=== PATIENT | female | born 1945 | race Caucasian/White ===

== ENCOUNTER 2017-09-06 00:59 | Inpatient (IN) | payer MEDICARE ==
[2017-09-06 02:00] LABS: Bilirubin Negative (Negative); Blood, Urine Small (Negative); Glucose, Urine (Dipstick) Negative (Negative); Ketone, Urine Negative (Negative); Nitrite Negative (Negative); Protein, Urine (Dipstick) Negative (Neg-Trace); Urobilinogen 0.2 mg/dL (0.2-1.0)
[2017-09-06 02:02] LABS: Bacteria/HPF None Seen HPF (None Seen); Hyaline Casts/LPF 0-3 HYALINE CAST LPF (0-3 Hyaline); Squamous Epithelial 0-3 HPF (0-3); WBC/HPF 0-3 HPF (0-3)
[2017-09-06 02:06] LABS: #Basophils 0.1 thou/uL (0.0-0.2); #Eosinphils 0.3 thou/uL (0.0-0.7); #Lymphocytes 2.8 thou/uL (1.20-3.40); #Monocytes 0.9 thou/uL (0.11-0.59); #Neutrophils 5.2 thou/uL (1.40-6.50); %Basophils 0.7 % (0.0-1.0); %Eosinophils 2.7 % (0.0-10.0); %Lymphocytes 30.7 % (21.0-51.0); %Monocytes 10.2 % (0.0-10.0); Hematocrit 41.4 % (36.0-47.0); Mean Platelet Volume 7.7 fL (7.4-10.4); Red Blood Cell (RBC) Count 4.61 mill/uL (4.20-5.40); White Blood Cell (WBC) Count 9.2 thou/uL (4.8-10.8)
[2017-09-06 02:25] LABS: Lactic Acid - Sepsis 2.1 mmol/L (0.5-2.2)
[2017-09-06 02:34] LABS: Troponin I 0.017 ng/mL (< 0.028)
[2017-09-06 02:42] LABS: ALT (SGPT) 16 U/L (8-55); AST (SGOT) 23 U/L (5-34); Alkaline Phosphatase 113 U/L (40-150); Anion Gap 15 mmol/L (10-20); BUN (Urea Nitrogen) 15 mg/dL (9.8-20.1); Bilirubin, Total 0.4 mg/dL (0.2-1.2); Calc. Creatinine Clearance 0 mL/min (70-130); Calcium 9.9 mg/dL (7.8-10.44); Carbon Dioxide 25 mmol/L (23-31); Chloride 103 mmol/L (98-107); Estimated GFR-MDRD 67; Globulin 3.2 g/dL (2.4-3.5); Protein, Total 7.1 g/dL (6.0-8.3)
[2017-09-06] MEDS ORDERED: Potassium Chloride 20 MEQ TAB ONE (03:10)
[2017-09-06 04:51] LABS: Troponin I 0.015 ng/mL (< 0.028)
[2017-09-06] MEDS ORDERED: Sodium Chloride 0.9% 500 ML IV SCH (05:30)
[2017-09-06] MEDS ORDERED: Acetaminophen 325 MG TAB PO PRN (05:30)
[2017-09-06] MEDS ORDERED: Ondansetron ODT 4 MG TAB SL PRN (05:30)
[2017-09-06] MEDS ORDERED: Ondansetron HCl/PF 4 MG/2 ML Vial IVP PRN (05:30)
[2017-09-06 05:57] VITALS: BMI 47.2
[2017-09-06 08:10] LABS: Troponin I Less than 0.010 ng/mL (< 0.028)
--- NOTE | 2017-09-06 08:36 | RAD ---
SINGLE VIEW OF CHEST: Date: 09/06/17 COMPARISON: None. HISTORY: Multiple episodes of near syncope. FINDINGS: Single view of the chest shows a normal sized cardiomediastinal silhouette. There is no evidence of consolidation, mass, or pleural effusion. The bones are unremarkable. IMPRESSION: No evidence of acute cardiopulmonary disease. POS: [facility]
[2017-09-06] MEDS ORDERED: Potassium Chloride 8 MEQ TAB PO SCH (11:15)
[2017-09-06 11:49] LABS: T4 6.9 ug/dL (4.87-11.72)
--- NOTE | 2017-09-06 14:44 | ULT ---
CAROTID ULTRASOUND: DATE: 09/06/17 COMPARISON: None. HISTORY: Near syncope. TECHNIQUE: Multiplanar Lewis scale and color Doppler images were obtained in a carotid ultrasound. Spectral anal ysis of the Doppler waveforms were performed. FINDINGS: No significant plaque is visualized in either internal or common carotid artery. The Doppler wavefor ms are normal bilaterally. Peak systolic velocity in the right ICA is 82 cm/second. Peak systolic velocity in the right CCA is 80 cm/second. The right ICA/CCA ratio is 1.0. Peak systolic velocity in the left ICA is 66 cm/second. Peak systolic velocity in the left CCA is 98 cm/second. The left ICA/CCA ratio is 0.7. Both vertebral arteries demonstrate antegrade flow without focal stenosis. IMPRESSION: No evidence of hemodynamically significant stenosis. POS: [place]
--- NOTE | 2017-09-06 15:56 | CON ---
DATE OF CONSULTATION: 09/06/2017 REASON FOR CONSULTATION: Symptomatic bradycardia. REFERRING PROVIDER: Trino Mcclelland D.O. HISTORY OF PRESENT ILLNESS: The patient is a patient of Dr. Andrea Mast. She states she has thomason d dizziness and lightheadedness noted over the last several months. She wore a recent 3-week event recorder which was negative. She had intermittent symptoms. She recently presented with the above and was felt to be bradycardic. Her heart rate has been in th e 40s to 50s. No chest pain, pressure, shortness of breath, lightheadedness, dizziness, syncope or presyncope present. PAST MEDICAL HISTORY: Hyperlipidemia, hypertension, and hypothyroidism. PAST SURGICAL HISTORY: Cholecystectomy, tonsillectomy, bilateral knee surgery, and laminectomy. ALLERGIES: None. HOME MEDICATIONS: Omeprazole, Diovan/hydrochlorothiazide, aspirin, metoprolol, potassium, Synthroid and pravastatin. REVIEW OF SYSTEMS: Ten-point review of systems is reviewed and as above, otherwise negative. PHYSICAL EXAMINATION: GENERAL: The patient is a pleasant female who is in no acute distress. The patient appears her sta nisha age. VITAL SIGNS: Blood pressure 178/98, pulse 89, temperature 98. NEUROLOGIC: The patient is alert and oriented x3 with no focal neurologic deficits. HEENT: Sclerae without icterus. Mouth has moist mucous membranes with normal pallor. NECK: No JVD. Carotid upstroke brisk. No bruits bilaterally. LUNGS: Clear to auscultation with unlabored respirations. BACK: No scoliosis or kyphosis. CARDIAC: Regular rate and rhythm with normal S1 and S2. No S3 or S4 noted. No significant rubs, m urmurs, thrills, or gallops noted throughout the precordium. PMI is not displaced. There is no par asternal heave. ABDOMEN: Soft, nontender, nondistended. No peritoneal signs present. No hepatosplenomegaly. No a bnormal striae. EXTREMITIES: 2+ femoral and 2+ dorsalis pedis pulses. No cyanosis, clubbing, or edema. SKIN: No gross abnormalities. PERTINENT LABS: Hemoglobin 13.7, hematocrit 41.4, creatinine 0.83, troponin negative. EKG: Sinus bradycardia with no EKG changes suggesting ischemia. IMPRESSION: 1. Dizziness. 2. Bradycardia. RECOMMENDATIONS: I am unsure whether her bradycardia is the true etiology to her current dizziness, which she has had over the last several months. She is currently in the process of workup by Dr. Osman Mast. At this point, we would decrease her metoprolol to 12.5 one p.o. q.a.m. I would be concerned about reflexive tachycardia if stop acutely. We may consider stopping completely tomorro w if her heart rate continues to be low. Again, her symptoms may be related to a beta-melida thera py. Another consideration is placing an implantable loop recorder. Would first try conservative th erapy first with the above. We would recommend followup with Dr. Andrea Mast in the next 2 to 3 weeks to see if her symptoms have improved. If not, we will proceed with the above.
--- NOTE | 2017-09-06 17:31 | HP ---
PRIMARY CARE PHYSICIAN: Dr. Jl Cueto. CHIEF COMPLAINT: Dizziness and near syncope. HISTORY OF PRESENT ILLNESS: This is a 72-year-old female patient of Dr. Jl Cueto with a histor y of hypertension, hyperlipidemia, hypothyroidism and gastroesophageal reflux disease. She has had episodes of dizziness over the past several months. She presented to the emergency department last night with worsening symptoms and feeling like she was about to pass out. The patient reports that she has had lightheaded and dizzy spells for the past several months. She has been seen by Dr. Phillip palmer for this and saw Dr. Mast last one week ago for these episodes. She did have a heart monitor, which she wore for about 1 month, which revealed no arrhythmias at that time. Yesterday, she was o ut in the heat mowed her lawn for about 1 hour. She felt fine with no dizziness during the mowing, but afterwards she went inside and she had 6-7 episodes of dizziness. She felt worse last night. S he called her daughter and minimum walking back from the phone and as she felt the room spinning and felt like she was about to fall, she states that she gets \\\\"thinking feeling\\\\" even when she is l linda down. She presents to the emergency department and had normal workup except for bradycardia on her EKG. She ruled out for an CO with negative cardiac enzymes and she is now being admitted for [facility] evaluation and treatment. PAST MEDICAL HISTORY: Hypertension, hyperlipidemia, hypothyroidism, gastroesophageal reflux disease . MEDICATIONS: Include metoprolol 50 mg daily, valsartan/hydrochlorothiazide 320/25 mg daily, levothy roxine 137 mcg daily and acid daily, omeprazole daily, Klor-Con 8 mEq daily, aspirin 81 mg daily, at orvastatin 10 mg daily. ALLERGIES: LEVAQUIN, which causes a rash. PAST SURGICAL HISTORY: Cholecystectomy, tonsillectomy, knee replacement of both knees. SOCIAL HISTORY: She lives alone. No alcohol, no drug use. She quit smoking over 40 years ago. FAMILY HISTORY: Father with CVA, sister with atrial fibrillation with history of CVA. REVIEW OF SYSTEMS: As per the history of present illness. GENERAL: She denies any recent fevers, chills or recent illness. HEENT: She denies headache, visual or hearing changes. She admits to the episodes of ringing in he r ears, but no hearing loss. CARDIAC: As per the history of present illness. She denies any chest pain, shortness of breath, pa lpitations. PULMONARY: Denies cough or hemoptysis. GASTROINTESTINAL: Denies nausea, vomiting, abdominal pain, melena or hematochezia. GENITOURINARY: Denies dysuria or hematuria. Denies recurrent urinary tract infections. NEUROLOGIC: Positive for dizziness and near syncope, but no loss of consciousness and no falls,. S he denies head trauma. PSYCHIATRIC: Denies anxiety or depression. PHYSICAL EXAMINATION: VITAL SIGNS: Temperature 97.5, pulse rate of 48-58, respirations 18, blood pressure 142/77, pulse o x is 96% on room air. GENERAL: She is awake and alert, in no acute distress. She is pleasant. Speech is clear. HEENT: Mucosa is moist. NECK: Supple, no JVD, adenopathy or bruits. HEART: Bradycardic, but regular. LUNGS: Clear bilaterally. ABDOMEN: Obese, soft, nontender, nondistended. No hepatosplenomegaly. EXTREMITIES: No clubbing, cyanosis or edema. 2+ peripheral pulses bilaterally. No calf tenderness . LABORATORY DATA: White blood cell count 9200, hemoglobin and hematocrit 13.7 and 41.4 and platelets of 306. D-dimer was normal. Sodium 140, potassium 3.2, chloride 103, CO2 25, BUN and creatinine 1 5 and 0.83 with a GFR of 67. Serum glucose was 117. Lactic acid was normal. AST and ALT are trace l. Troponin I is negative. TSH was done in June, which was normal. Urinalysis showed small bloo d and trace leukocytes. Chest x-ray showed no active disease. ASSESSMENT AND PLAN: This is a 72-year-old female patient with a history of hypertension, hyperlipi demia, and persistent dizziness, which seems to be worsening with episodes of lightheadedness and ne ar syncope. She has a long history of low heart rate even down into the 30s and 40s when she was ad mitted at the [facility] several years ago, now with persistent and worsening of her symptoms. I agree with admission to telemetry. Consult Cardiology for evaluation. Apparently , Dr. Mast has been noted possibly placement of a loop recorder or pacemaker if her symptoms wor sen. 1. Hypertension. We will continue her home medications, but will hold metoprolol due to her low he art rate. 2. Hyperlipidemia. We will continue her medications. 3. Hypothyroidism, appears to be stable. We will check a TSH and T4. 4. Near syncope. We will check carotid Doppler, possibly might need an MRI of her brain if her sym ptoms worsen.
[2017-09-06] MEDS ORDERED: Hydrochlorothiazide 25 MG TAB PO SCH (18:15)
[2017-09-06] MEDS ORDERED: Valsartan 80 MG TAB PO SCH (18:15)
[2017-09-07] MEDS ORDERED: Levothyroxine Sodium 112 MCG TAB PO SCH (06:00)
[2017-09-07] MEDS ORDERED: Levothyroxine Sodium 25 MCG TAB PO SCH (06:00)
[2017-09-07 06:26] LABS: Anion Gap 13 mmol/L (10-20); BUN (Urea Nitrogen) 12 mg/dL (9.8-20.1); Calc. Creatinine Clearance 116 mL/min (70-130); Calcium 9.5 mg/dL (7.8-10.44); Carbon Dioxide 27 mmol/L (23-31); Chloride 103 mmol/L (98-107); Estimated GFR-MDRD 79
[2017-09-07] MEDS ORDERED: Non-Formulary Item 1 EACH (Omeprazole [Omeprazole] 20 MG) PO SCH (09:00)
[2017-09-07] MEDS ORDERED: Non-Formulary Item 1 EACH (Potassium Chloride [Potassium Chloride] 8 MEQ) PO SCH (09:00)
[2017-09-07] MEDS ORDERED: Non-Formulary Item 1 EACH (Valsartan/Hydrochlorothiazide [Valsartan-Hctz 320-25 Mg Tab] 1 PO SCH (09:00)
[2017-09-07] MEDS ORDERED: Aspirin 81 mg Enteric Coated Tablet PO SCH (09:00)
[2017-09-07] MEDS ORDERED: Non-Formulary Item 1 EACH (Levothyroxine Sodium [Levothyroxine Sodium] 137 MCG) PO SCH (09:00)
[2017-09-07] MEDS ORDERED: Hydrochlorothiazide 25 MG TAB PO SCH (09:00)
[2017-09-07] MEDS ORDERED: Potassium Chloride 8 MEQ TAB PO SCH (09:00)
[2017-09-07] MEDS ORDERED: Valsartan 80 MG TAB PO SCH (09:00)
[2017-09-07] MEDS ORDERED: Atorvastatin Calcium 10 MG TAB PO SCH (09:00)
[2017-09-07 10:49] VITALS: BP 142/78; TEMP 98.1
--- NOTE | 2017-09-07 19:21 | DIS ---
ADMISSION DIAGNOSES: 1. Dizziness, near syncope. 2. Bradycardia. 3. Hypertension. 4. Hypothyroidism. DISCHARGE DIAGNOSES: Dizziness, improved. Bradycardia, improved with decreased beta-melida. CONSULTATIONS: Dr. Gill for Cardiology. PROCEDURES: Telemetry monitoring, carotid ultrasound, chest x-ray. HOSPITAL COURSE: This 72-year-old female patient with a history of hypertension, hyperlipidemia, hy pothyroidism with persistent dizziness over the past several months. Workup has been initiated by Maxx Cueto and Dr. Mast as she had a 3-week heart monitor placed, which was normal. Her beta-bloc ker was decreased yesterday. She has had decreased episodes of her dizziness but continued to have one today while she was walking in the hallway. No fall, no near syncope. It has improved from whe n she first came to the ER and she is anxious to go home. PHYSICAL EXAMINATION: VITAL SIGNS: Temperature 98.6, pulse of 63-72, respirations 20, blood pressure 136/66, pulse ox is 96% on room air. GENERAL: She is awake and alert. Speech is clear. NECK: Supple. No bruits. HEART: Regular rate and rhythm. LUNGS: Clear. ABDOMEN: Soft. EXTREMITIES: With no edema. NEUROLOGIC: Cranial nerves II through XII are intact. Strength is 5/5 bilaterally. The Loyal-Hallpi ke exam was negative. LABORATORY DATA: Carotid Dopplers were normal. Labs were all normal. Sodium 139, potassium 3.5, c hloride 103, CO2 of 27, BUN and creatinine 12 and 0.72. Serum glucose of 105. Troponins are negati ve. Thyroid was stable. DISCHARGE MEDICATIONS: Include aspirin 81 mg, Lipitor 10 mg, hydrochlorothiazide 25 mg, levothyroxi ne 137 mcg, metoprolol 12.5 mg with decreasing dosages per Cardiology, Protonix 40 mg, potassium chl oride 8 mEq, valsartan/hydrochlorothiazide 320/12.5 daily. FOLLOWUP INSTRUCTIONS: The patient is to follow up with Dr. Cueto in 1 week and consider ENT evalua tion if she continues to have the dizzy spells. Follow up with Cardiology as needed for bradycardia .
== END 2017-09-07 16:50 | disposition home or self-care (01) | DRG 310 ==
LOC: ERS 00:59 → 2SW 05:17 → OBSVTOIN 10:52 → 2NO 18:12
PROVIDERS: ADMIT Family Medicine; ATTEND Family Medicine
DX: R00.1 Bradycardia, unspecified (principal); I10 Essential (primary) hypertension; E03.9 Hypothyroidism, unspecified; Z96.653 Presence of artificial knee joint, bilateral; Z82.3 Family history of stroke; E78.5 Hyperlipidemia, unspecified; T50.995A Adverse effect of other drugs, medicaments and biological substances, initial encounter
CPT/HCPCS: 36415; 71010; 80048; 80053; 81003; 81015; 82553; 83605; 84436; 84443; 84484; 85025; 85379; 93005; 93306; 93880; 94760; 96360; A4216

== ENCOUNTER 2022-06-14 21:52 | Emergency (ER) | payer MEDICARE | END 2022-06-15 00:04 | disposition left against medical advice (07) | LOC: ERS 21:52 | DX: Z53.21 Procedure and treatment not carried out due to patient leaving prior to being seen by health care provider (principal) | CPT/HCPCS: 93005 ==

== ENCOUNTER 2023-05-03 21:19 | Observation (INO) | payer MEDICARE ==
[2023-05-03 21:44] LABS: #Basophils 0.1 thou/uL (0.0-0.2); #Eosinphils 0.4 thou/uL (0.0-0.7); #Monocytes 1.4 thou/uL (0.11-0.59); #Neutrophils 5.6 thou/uL (1.40-6.50); %Basophils 0.9 % (0.0-1.0); %Eosinophils 3.9 % (0.0-10.0); %Lymphocytes 28.8 % (21.0-51.0); %Monocytes 13.3 % (0.0-10.0); %Neutrophils 52.7 % (42.0-75.0); Hemoglobin 10.9 g/dL (12.0-16.0); Mean Corpuscular HGB CONC 34.2 g/dL (32.0-36.0); Mean Corpuscular Hemoglobin 32.2 pg (27.0-31.0); Mean Corpuscular Volume 94.1 fl (78.0-98.0); Mean Platelet Volume 9.9 fL (7.4-10.4); Platelet Count 388 10x3/uL (130-400); RBC Distribution Width 14.2 % (11.5-14.5); Red Blood Cell (RBC) Count 3.39 mill/uL (4.20-5.40); White Blood Cell (WBC) Count 10.7 10x3/uL (4.8-10.8)
[2023-05-03 22:08] LABS: ALT (SGPT) 15 U/L (8-55); AST (SGOT) 21 U/L (5-34); Alkaline Phosphatase 117 U/L (40-110); Anion Gap 13 mmol/L (10-20); BUN (Urea Nitrogen) 27 mg/dL (9.8-20.1); Bilirubin, Total 0.7 mg/dL (0.2-1.2); Calc. Creatinine Clearance 0 mL/min (70-130); Calcium 10.1 mg/dL (7.8-10.44); Carbon Dioxide 24 mmol/L (23-31); Chloride 108 mmol/L (98-107); Estimated GFR 51; Globulin 2.9 g/dL (2.4-3.5); Glucose 111 mg/dL (83-110); Potassium 3.9 mmol/L (3.5-5.1); Protein, Total 6.9 g/dL (5.8-8.1); Sodium 141 mmol/L (136-145)
[2023-05-03] MEDS ORDERED: Diltiazem 125 MG in Sodium Chloride 0.9% 100 ML IVPB SCH (23:00)
[2023-05-03 23:17] LABS: Magnesium 1.4 mg/dL (1.6-2.6); Phosphorus 3.1 mg/dL (2.3-4.7)
[2023-05-03 23:42] LABS: Thyroid Stimulating Hormone 5.8992 uIU/mL (0.35-4.94)
[2023-05-04] MEDS: Sodium Chloride 0.9% 1,000 ML IV SCH ×2 (00:43→05:54)
[2023-05-04 01:17] VITALS: BMI 44.3
[2023-05-04 01:17] LABS: Troponin I 0.017 ng/mL (< 0.028)
[2023-05-04] MEDS ORDERED: Acetaminophen 500 MG TAB PO SCH (02:15)
[2023-05-04] MEDS ORDERED: Naproxen 500 MG TAB PO SCH (02:15)
[2023-05-04 04:18] LABS: Free T4 (Free Thyroxine) 0.94 ng/dL (0.70-1.48)
[2023-05-04] MEDS ORDERED: Levothyroxine 150 MCG TAB PO SCH (06:00)
[2023-05-04 06:15] LABS: #Basophils 0.1 thou/uL (0.0-0.2); #Eosinphils 0.3 thou/uL (0.0-0.7); #Monocytes 0.8 thou/uL (0.11-0.59); #Neutrophils 2.8 thou/uL (1.40-6.50); %Basophils 1.1 % (0.0-1.0); %Eosinophils 4.9 % (0.0-10.0); %Lymphocytes 36.3 % (21.0-51.0); %Monocytes 12.4 % (0.0-10.0); Hemoglobin 9.8 g/dL (12.0-16.0); Mean Corpuscular Hemoglobin 30.9 pg (27.0-31.0); Mean Corpuscular Volume 96.5 fl (78.0-98.0); Mean Platelet Volume 10.9 fL (7.4-10.4); Platelet Count 348 10x3/uL (130-400); RBC Distribution Width 16.2 % (11.5-14.5); Red Blood Cell (RBC) Count 3.17 mill/uL (4.20-5.40); White Blood Cell (WBC) Count 6.2 10x3/uL (4.8-10.8)
[2023-05-04 06:42] LABS: Troponin I 0.018 ng/mL (< 0.028)
[2023-05-04] MEDS ORDERED: Magnesium Sulfate In Water 4 GM in Premix Bag 1 BAG IVPB SCH (07:45)
[2023-05-04 08:12] LABS: Anion Gap 10 mmol/L (10-20); BUN (Urea Nitrogen) 23 mg/dL (9.8-20.1); Calc. Creatinine Clearance 87 mL/min (70-130); Calcium 9.3 mg/dL (7.8-10.44); Carbon Dioxide 22 mmol/L (23-31); Chloride 109 mmol/L (98-107); Estimated GFR 70; Glucose 110 mg/dL (83-110); Potassium 3.9 mmol/L (3.5-5.1); Sodium 137 mmol/L (136-145)
[2023-05-04] MEDS ORDERED: Potassium Chloride 8 MEQ TAB PO SCH (09:00)
[2023-05-04] MEDS ORDERED: Non-Formulary Item 1 EACH (Valsartan/Hydrochlorothiazide [Valsartan-Hctz 320-25 Mg Tab] 1 PO SCH (09:00)
[2023-05-04] MEDS ORDERED: Apixaban 5 MG TAB PO SCH (09:00)
[2023-05-04] MEDS ORDERED: POTASSIUM CHLORIDE 8 MEQ PO SCH (09:00)
[2023-05-04] MEDS ORDERED: Atorvastatin Calcium 10 MG TAB PO SCH (09:00)
[2023-05-04] MEDS ORDERED: Valsartan 80 MG TAB PO SCH (10:45)
[2023-05-04] MEDS ORDERED: Hydrochlorothiazide 25 MG TAB PO SCH (10:45)
[2023-05-04 11:18] VITALS: BP 127/63; TEMP 98.2
[2023-05-05] MEDS ORDERED: Hydrochlorothiazide 25 MG TAB PO SCH (09:00)
[2023-05-05] MEDS ORDERED: Valsartan 80 MG TAB PO SCH (09:00)
== END 2023-05-04 13:20 | disposition home or self-care (01) ==
LOC: ERS 21:19 → SUATTDRO 21:19 → 2SW 22:52 → INTOOBSV 22:52
PROVIDERS: ADMIT Family Medicine; ATTEND Internal Medicine
DX: I48.91 Unspecified atrial fibrillation (principal); I47.1 Supraventricular tachycardia; E83.42 Hypomagnesemia; E03.9 Hypothyroidism, unspecified; I10 Essential (primary) hypertension; Z90.49 Acquired absence of other specified parts of digestive tract; Z90.89 Acquired absence of other organs; Z79.890 Hormone replacement therapy; Z79.82 Long term (current) use of aspirin; Z79.899 Other long term (current) drug therapy
CPT/HCPCS: 71045; 80048; 83735; 84100; 84439; 84484 ×3; 85025; 93005; 93306; 96365; 96366; 96372; 99285; J3475; 36415; 80053; 84443; 96375; G0378; J1650; J7050

== ENCOUNTER 2023-05-26 03:55 | Inpatient (IN) | payer MEDICARE ==
[2023-05-26 04:26] LABS: #Basophils 0.1 thou/uL (0.0-0.2); #Eosinphils 0.4 thou/uL (0.0-0.7); #Monocytes 1.1 thou/uL (0.11-0.59); #Neutrophils 5.9 thou/uL (1.40-6.50); %Eosinophils 3.7 % (0.0-10.0); %Lymphocytes 22.3 % (21.0-51.0); %Monocytes 11.2 % (0.0-10.0); %Neutrophils 61.5 % (42.0-75.0); Mean Corpuscular Hemoglobin 32.3 pg (27.0-31.0); Mean Platelet Volume 9.6 fL (7.4-10.4); Platelet Count 393 10x3/uL (130-400); RBC Distribution Width 14.1 % (11.5-14.5); Red Blood Cell (RBC) Count 3.41 mill/uL (4.20-5.40); White Blood Cell (WBC) Count 9.6 10x3/uL (4.8-10.8)
[2023-05-26 04:48] LABS: ALT (SGPT) 17 U/L (8-55); AST (SGOT) 21 U/L (5-34); Alkaline Phosphatase 95 U/L (40-110); Anion Gap 12 mmol/L (10-20); BUN (Urea Nitrogen) 23 mg/dL (9.8-20.1); Bilirubin, Total 0.9 mg/dL (0.2-1.2); Calc. Creatinine Clearance 0 mL/min (70-130); Calcium 10.4 mg/dL (7.8-10.44); Carbon Dioxide 30 mmol/L (23-31); Chloride 103 mmol/L (98-107); Estimated GFR 55; Globulin 2.9 g/dL (2.4-3.5); Glucose 107 mg/dL (83-110); Potassium 4.1 mmol/L (3.5-5.1); Protein, Total 6.9 g/dL (5.8-8.1); Sodium 141 mmol/L (136-145)
[2023-05-26 08:10] VITALS: BMI 43.9
[2023-05-26] MEDS ORDERED: hydrALAZINE 20 MG/ML VIAL SLOW IVP PRN (08:24)
[2023-05-26 08:40] LABS: Troponin I Less than 0.010 ng/mL (< 0.028)
[2023-05-26] MEDS ORDERED: Acetaminophen 325 MG TAB ONE (08:58)
[2023-05-26] MEDS ORDERED: Non-Formulary Item 1 EACH (Levothyroxine Sodium [Levothyroxine Sodium] 137 MCG Tablet) PO SCH (09:00)
[2023-05-26] MEDS ORDERED: Apixaban 5 MG TAB PO SCH (09:00)
[2023-05-26] MEDS ORDERED: Non-Formulary Item 1 EACH (Valsartan/Hydrochlorothiazide [Valsartan-Hctz 320-25 Mg Tab] 1 PO SCH (09:00)
[2023-05-26] MEDS ORDERED: POTASSIUM CHLORIDE 8 MEQ PO SCH (09:00)
[2023-05-26] MEDS: Acetaminophen 325 MG TAB PO PRN ×3 (09:03→21:44)
[2023-05-26] MEDS: Atorvastatin Calcium 10 MG TAB PO SCH (10:13)
[2023-05-26] MEDS: Potassium Chloride 8 MEQ TAB PO SCH (10:14)
[2023-05-26] MEDS: Hydrochlorothiazide 25 MG TAB PO SCH (10:14)
[2023-05-26] MEDS: Valsartan 80 MG TAB PO SCH (10:14)
[2023-05-26 11:53] LABS: Troponin I Less than 0.010 ng/mL (< 0.028)
[2023-05-27 05:26] LABS: #Basophils 0.1 thou/uL (0.0-0.2); #Eosinphils 0.2 thou/uL (0.0-0.7); #Monocytes 0.7 thou/uL (0.11-0.59); #Neutrophils 3.1 thou/uL (1.40-6.50); %Basophils 1.1 % (0.0-1.0); %Eosinophils 3.9 % (0.0-10.0); %Lymphocytes 32.6 % (21.0-51.0); %Neutrophils 50.9 % (42.0-75.0); Hemoglobin 11.1 g/dL (12.0-16.0); Mean Corpuscular HGB CONC 32.6 g/dL (32.0-36.0); Mean Corpuscular Hemoglobin 31.2 pg (27.0-31.0); Mean Corpuscular Volume 95.5 fl (78.0-98.0); Mean Platelet Volume 11.2 fL (7.4-10.4); Platelet Count 474 10x3/uL (130-400); RBC Distribution Width 16.3 % (11.5-14.5); Red Blood Cell (RBC) Count 3.56 mill/uL (4.20-5.40); White Blood Cell (WBC) Count 6.1 10x3/uL (4.8-10.8)
[2023-05-27] MEDS: Levothyroxine 150 MCG TAB PO SCH (05:47)
[2023-05-27] MEDS: Acetaminophen 325 MG TAB PO PRN ×3 (05:49→20:27)
[2023-05-27 06:59] LABS: Anion Gap 10 mmol/L (10-20); BUN (Urea Nitrogen) 23 mg/dL (9.8-20.1); Calc. Creatinine Clearance 76 mL/min (70-130); Calcium 10.2 mg/dL (7.8-10.44); Carbon Dioxide 31 mmol/L (23-31); Chloride 104 mmol/L (98-107); Estimated GFR 61; Glucose 108 mg/dL (83-110); Sodium 141 mmol/L (136-145)
[2023-05-27] MEDS: Hydrochlorothiazide 25 MG TAB PO SCH (08:39)
[2023-05-27] MEDS: Valsartan 80 MG TAB PO SCH (08:39)
[2023-05-27] MEDS: Atorvastatin Calcium 10 MG TAB PO SCH (08:39)
[2023-05-27] MEDS: Potassium Chloride 8 MEQ TAB PO SCH (09:06)
[2023-05-28] MEDS: Levothyroxine 150 MCG TAB PO SCH (05:18)
[2023-05-28] MEDS: Acetaminophen 325 MG TAB PO PRN ×3 (05:18→16:59)
[2023-05-28] MEDS: Sodium Chloride 0.9% 1,000 ML IV SCH ×2 (05:19→17:04)
[2023-05-28] MEDS: Hydrochlorothiazide 25 MG TAB PO SCH (10:06)
[2023-05-28] MEDS: Potassium Chloride 8 MEQ TAB PO SCH (10:06)
[2023-05-28] MEDS: Atorvastatin Calcium 10 MG TAB PO SCH (10:06)
[2023-05-28] MEDS: Valsartan 80 MG TAB PO SCH (10:06)
[2023-05-28] MEDS ORDERED: Aspirin 81 mg Enteric Coated Tablet PO SCH (12:30)
[2023-05-28] MEDS ORDERED: Iopamidol 370 76% 100 ML VIAL ONE (12:52)
[2023-05-29] MEDS: Acetaminophen 325 MG TAB PO PRN ×3 (00:32→14:43)
[2023-05-29] MEDS ORDERED: Calcium Chloride 1 GM/10 ML Abboject SYRINGE ONE (02:48)
[2023-05-29] MEDS: Levothyroxine 150 MCG TAB PO SCH (05:19)
[2023-05-29] MEDS ORDERED: Sodium Chloride 0.9% 1,000 ML IV SCH ×2 (06:00→09:00)
[2023-05-29] MEDS ORDERED: Lidocaine 1% (PF) 30 ML VIAL ONE ×4 (06:17→07:39)
[2023-05-29] MEDS ORDERED: Gentamicin 80 MG/2 ML VIAL ONE (06:17)
[2023-05-29] MEDS ORDERED: CEFAZOLIN 1 GM VIAL ONE (06:17)
[2023-05-29] MEDS ORDERED: CEFAZOLIN 2 GM VIAL ONE (06:17)
[2023-05-29] MEDS ORDERED: Midazolam HCl 2 mg/2 ml Vial ONE (07:03)
[2023-05-29] MEDS ORDERED: fentaNYL 50 mcg/mL 1 mL Vial ONE (07:03)
[2023-05-29] MEDS ORDERED: Acetaminophen/Codeine 30-300mg Tablet PO PRN ×2 (08:53)
[2023-05-29] MEDS ORDERED: Dronedarone HCl 400 MG TAB PO SCH (09:00)
[2023-05-29] MEDS: Aspirin 81 mg Enteric Coated Tablet PO SCH (09:05)
[2023-05-29] MEDS: Valsartan 80 MG TAB PO SCH (09:05)
[2023-05-29] MEDS: Atorvastatin Calcium 10 MG TAB PO SCH (09:06)
[2023-05-29] MEDS: Hydrochlorothiazide 25 MG TAB PO SCH (09:06)
[2023-05-29] MEDS: Cephalexin 250 MG CAP PO SCH ×3 (09:30→20:57)
[2023-05-29] MEDS: Potassium Chloride 8 MEQ TAB PO SCH (11:16)
[2023-05-29] MEDS: Dronedarone HCl 400 MG TAB PO SCH (17:43)
[2023-05-30 04:41] LABS: #Basophils 0.1 thou/uL (0.0-0.2); #Eosinphils 0.2 thou/uL (0.0-0.7); #Monocytes 0.7 thou/uL (0.11-0.59); #Neutrophils 4.7 thou/uL (1.40-6.50); %Basophils 0.8 % (0.0-1.0); %Eosinophils 2.4 % (0.0-10.0); %Lymphocytes 28.2 % (21.0-51.0); %Monocytes 9.4 % (0.0-10.0); %Neutrophils 58.8 % (42.0-75.0); Hemoglobin 11.3 g/dL (12.0-16.0); Mean Corpuscular HGB CONC 34.1 g/dL (32.0-36.0); Mean Corpuscular Volume 93.8 fl (78.0-98.0); Mean Platelet Volume 10.7 fL (7.4-10.4); Platelet Count 442 10x3/uL (130-400); RBC Distribution Width 15.7 % (11.5-14.5); Red Blood Cell (RBC) Count 3.53 mill/uL (4.20-5.40); White Blood Cell (WBC) Count 7.9 10x3/uL (4.8-10.8)
[2023-05-30] MEDS: Acetaminophen 325 MG TAB PO PRN ×2 (06:06→12:07)
[2023-05-30] MEDS: Levothyroxine 150 MCG TAB PO SCH (06:08)
[2023-05-30 06:49] LABS: Anion Gap 10 mmol/L (10-20); BUN (Urea Nitrogen) 19 mg/dL (9.8-20.1); Calc. Creatinine Clearance 84 mL/min (70-130); Calcium 10.3 mg/dL (7.8-10.44); Carbon Dioxide 28 mmol/L (23-31); Chloride 105 mmol/L (98-107); Estimated GFR 68; Glucose 102 mg/dL (83-110); Sodium 139 mmol/L (136-145)
[2023-05-30] MEDS: Cephalexin 250 MG CAP PO SCH (08:42)
[2023-05-30] MEDS: Hydrochlorothiazide 25 MG TAB PO SCH (08:42)
[2023-05-30] MEDS: Potassium Chloride 8 MEQ TAB PO SCH (08:42)
[2023-05-30] MEDS: Aspirin 81 mg Enteric Coated Tablet PO SCH (08:42)
[2023-05-30] MEDS: Dronedarone HCl 400 MG TAB PO SCH (08:42)
[2023-05-30] MEDS: Valsartan 80 MG TAB PO SCH (08:42)
[2023-05-30] MEDS: Atorvastatin Calcium 10 MG TAB PO SCH (08:42)
[2023-05-30 12:08] VITALS: BP 114/58; TEMP 97.9
[2023-05-31] MEDS ORDERED: Apixaban 5 MG TAB PO SCH (09:00)
== END 2023-05-30 12:39 | disposition home or self-care (01) | DRG 244 ==
LOC: ERS 03:55 → ERHOLD 07:27 → 2SW 14:47 → OBSVTOIN 05-28 11:08
PROVIDERS: ADMIT Internal Medicine; ATTEND Internal Medicine
PROC: 0JH606Z Insertion of Pacemaker, Dual Chamber into Chest Subcutaneous Tissue and Fascia, Open Approach (ICD-10-PCS; principal; 2023-05-29)
PROC: 02H63JZ Insertion of Pacemaker Lead into Right Atrium, Percutaneous Approach (ICD-10-PCS; 2023-05-29)
PROC: 02HK3JZ Insertion of Pacemaker Lead into Right Ventricle, Percutaneous Approach (ICD-10-PCS; 2023-05-29)
PROC: B5171ZZ Fluoroscopy of Left Subclavian Vein using Low Osmolar Contrast (ICD-10-PCS; 2023-05-29)
DX: I49.5 Sick sinus syndrome (principal); I48.91 Unspecified atrial fibrillation; E03.9 Hypothyroidism, unspecified; I10 Essential (primary) hypertension; R00.2 Palpitations; L98.8 Other specified disorders of the skin and subcutaneous tissue; Z66 Do not resuscitate; Z96.649 Presence of unspecified artificial hip joint; Z88.8 Allergy status to other drugs, medicaments and biological substances; Z79.899 Other long term (current) drug therapy; Z90.49 Acquired absence of other specified parts of digestive tract; Z90.89 Acquired absence of other organs; Z87.891 Personal history of nicotine dependence; Z82.3 Family history of stroke
CPT/HCPCS: 33208; 36415; 71045; 75635; 80048; 80053; 84484; 85025; 93005; 93010; 93798; 99152; 99153; C1785; C1898; G0378; J0690; J1580; J2001; J2250; J3010; J7050; Q9967

== ENCOUNTER 2023-07-01 00:12 | Emergency (ER) | payer MEDICARE ==
[2023-07-01] MEDS ORDERED: HYDROcodone/Acetaminophen 5/325 mg Tablet ONE (01:37)
[2023-07-01 01:45] LABS: #Basophils 0.1 thou/uL (0.0-0.2); #Eosinphils 0.4 thou/uL (0.0-0.7); #Monocytes 1.3 thou/uL (0.11-0.59); #Neutrophils 8.2 thou/uL (1.40-6.50); %Basophils 0.6 % (0.0-1.0); %Eosinophils 3.1 % (0.0-10.0); %Lymphocytes 18.1 % (21.0-51.0); %Monocytes 10.6 % (0.0-10.0); %Neutrophils 67.1 % (42.0-75.0); Hematocrit 29.7 % (36.0-47.0); Hemoglobin 10.1 g/dL (12.0-16.0); Mean Corpuscular Hemoglobin 32.7 pg (27.0-31.0); Mean Corpuscular Volume 96.1 fl (78.0-98.0); Mean Platelet Volume 9.2 fL (7.4-10.4); Platelet Count 379 10x3/uL (130-400); RBC Distribution Width 15.1 % (11.5-14.5); Red Blood Cell (RBC) Count 3.09 mill/uL (4.20-5.40); White Blood Cell (WBC) Count 12.2 10x3/uL (4.8-10.8)
[2023-07-01 02:02] LABS: INR-International Normal Ratio 1.2; Prothrombin Time 15.7 sec (12.0-14.7)
[2023-07-01 02:03] LABS: PTT 30.1 sec (22.9-36.1)
[2023-07-01 02:06] LABS: ALT (SGPT) 13 U/L (8-55); AST (SGOT) 19 U/L (5-34); Albumin 4.1 g/dL (3.4-4.8); Alkaline Phosphatase 102 U/L (40-110); Anion Gap 12 mmol/L (10-20); BUN (Urea Nitrogen) 16 mg/dL (9.8-20.1); Bilirubin, Total 1.4 mg/dL (0.2-1.2); Calc. Creatinine Clearance 0 mL/min (70-130); Calcium 10.3 mg/dL (7.8-10.44); Carbon Dioxide 26 mmol/L (23-31); Chloride 106 mmol/L (98-107); Estimated GFR 61; Globulin 3.1 g/dL (2.4-3.5); Glucose 110 mg/dL (83-110); Potassium 3.9 mmol/L (3.5-5.1); Protein, Total 7.2 g/dL (5.8-8.1); Sodium 140 mmol/L (136-145)
== END 2023-07-01 01:51 | disposition home or self-care (01) ==
LOC: ERS 00:12
DX: M79.672 Pain in left foot (principal); E03.9 Hypothyroidism, unspecified; I48.91 Unspecified atrial fibrillation; I10 Essential (primary) hypertension; Z79.899 Other long term (current) drug therapy; Z79.01 Long term (current) use of anticoagulants
CPT/HCPCS: 36415; 80053; 83880; 85025; 85610; 85730; 99283

== ENCOUNTER 2024-06-08 14:06 | Outpatient (CLI) | payer MEDICARE | END 2024-06-08 14:07 | disposition home or self-care (01) | LOC: SCSRAD 14:06 | PROVIDERS: ATTEND Nurse Practitioner Family | DX: R06.02 Shortness of breath (principal) | CPT/HCPCS: 71046 ==

== ENCOUNTER 2024-09-14 13:56 | Outpatient (CLI) | payer MEDICARE | END 2024-09-14 13:57 | disposition home or self-care (01) | LOC: RAD 13:56 | PROVIDERS: ATTEND Internal Medicine | DX: R06.00 Dyspnea, unspecified (principal); I51.7 Cardiomegaly | CPT/HCPCS: 71046 ==